=== PATIENT | male | born 1940 | race Caucasian/White ===

== ENCOUNTER 2020-10-24 20:27 | Emergency (ER) | payer OTHER ==
[~2020-10-24] VITALS: Ht 177.8 cm; Wt 75.8 kg
[~2020-10-24 20:27] MED LIST: AMARYL4 MG PO; ASPIRIN325 PO; CINNAMON PO; COQ-10100 MG PO; COUMADIN 5 MG TA5 M1 PO; COZAAR 50 MG TA50 M2 PO; FOLIC ACID1 MG PO; HYDROCODONE-AP1 EAC6 PO; LOPRESSOR PO; MULTIVITAMINS PO; NITROGLYCERIN0.4 MG; OMEGA-31000 M1 PO; ONGLYZA2.5 MG PO; PRAVASTATIN SOD40 MG PO; PRILOSEC 20 MG20 MG PO; SAW PALMETTO160 M1 PO; TOUJEO SOL300 UNIT/1 SQ; VALIUM5 MG PO; VITAMIN D1000 UNI1 PO; ZESTRIL30 MG PO
[2020-10-24 21:05] LABS: ABSOLUTE NEUTROPHILS 3.1 thou/uL (1.4-8.2); BASOPHILS 0.4 % (0.0-2.0); EOSINOPHILS 0.8 % (0.0-3.0); HEMATOCRIT 32.5 % (42.0-52.0); HEMOGLOBIN 10.9 gm/dL (14.0-18.0); LYMPHOCYTES 18.1 % (24.0-44.0); MCH 27.7 pg (26.0-34.0); MCHC 33.6 g/dL (28.0-37.0); MCV 82.6 fL (80.0-100.0); MONOCYTES 15.1 % (1.0-8.0); PLATELET COUNT 133 thou/uL (150-400); POLYS 65.6 % (36.0-66.0); RBC 3.94 mil/uL (4.50-6.00); RDW 13.9 % (10.5-14.5); WBC 4.7 thou/uL (4.0-11.0)
[2020-10-24 21:14] LABS: CALCIUM 8.8 mg/dL (8.5-10.1); CREATININE 1.5 mg/dL (0.7-1.3); POTASSIUM 4.3 mmol/L (3.5-5.1)
[2020-10-24 21:17] LABS: URINE BILIRUBIN NEGATIVE (Negative); URINE BLOOD TRACE (Negative); URINE CLARITY CLEAR; URINE COLOR YELLOW; URINE GLUCOSE-RANDOM* NEGATIVE (Negative); URINE KETONES NEGATIVE (Negative); URINE LEUKOCYTES-REFLEX NEGATIVE (Negative); URINE NITRITE-REFLEX NEGATIVE (Negative); URINE PROTEIN (DIPSTICK) 1+ (Negative); URINE SPECIFIC GRAVITY 1.025 (1.005-1.035)
[2020-10-24 21:20] LABS: ALBUMIN 3.1 g/dL (3.4-5.0); DIRECT BILIRUBIN 0.1 mg/dL (<0.1-0.2); TOTAL BILIRUBIN 0.4 mg/dL (0.2-1.0); TOTAL PROTEIN 7.2 g/dL (6.4-8.2)
[2020-10-24 21:24] LABS: BACTERIA-REFLEX 1-9 Few /HPF (None Seen); CASTS None Seen /LPF (None Seen); CRYSTALS None Seen /LPF (None Seen); SQUAMOUS None Seen /LPF (0-3); URINE RBC 0-2 Rare /HPF (0-2); URINE WBC-REFLEX None Seen /HPF (0-5)
[2020-10-24] MEDS ORDERED: KEFLEX500 M1 PO (22:58)
[2020-10-24] MEDS ORDERED: IBUPROFEN 400400 M2 PO (22:58)
[2020-10-24] MEDS ORDERED: TYLENOL325 M1 PO (22:58)
[2020-10-24 23:40] VITALS: BP 117/65
== END 2020-10-24 23:40 | disposition home or self-care (01) ==
LOC: ER 20:27
PROVIDERS: Nurse Practitioner
DX: U07.1 COVID-19 (principal); N28.9 Disorder of kidney and ureter, unspecified; N39.0 Urinary tract infection, site not specified; E11.9 Type 2 diabetes mellitus without complications; Z88.8 Allergy status to other drugs, medicaments and biological substances; Z79.4 Long term (current) use of insulin; Z79.899 Other long term (current) drug therapy; Z79.82 Long term (current) use of aspirin; Z95.5 Presence of coronary angioplasty implant and graft; Z98.890 Other specified postprocedural states

== ENCOUNTER → 2021-07-16 | Outpatient (CLI) | payer OTHER ==
[~2021-07-16] VITALS: Ht 177.8 cm; Wt 73.9 kg
[~2021-07-16] MED LIST changes: +CARVEDILOL12.5 MG PO; -COUMADIN 5 MG TA5 M1 PO; +COZAAR 25 MG TA25 MG PO; -COZAAR 50 MG TA50 M2 PO; +FARXIGA10 MG PO; +FISH OIL 1,001000 M2 PO; +IBUPROFEN 400400 M2 PO; +IRON240 M1 PO; +ISORDIL40 M1 PO; +KEFLEX500 M1 PO; +LEVEMIR100 UNIT/2 SUBQ; +LEVOTHYROXINE50 MC1 PO; +LOVENOX40 MG/0.4; +MAGNESIUM500 MG PO; +PROTONIX40 M2 PO; +REPATHA SU140 MG/1 M SUBQ; +TYLENOL325 M1 PO; +VITAMIN B-122000 MC1 PO; +VITAMIN D3125 MC2 PO; +WARFARIN SODIU7.5 MG PO
[2021-07-16 13:07] VITALS: BP 127/58
--- NOTE | 2021-07-16 13:27 | NUR ---
Pain Clinic Assessment: 1. History of Osteoarthritis: Not Applicable History of Rheumatoid Arthritis: Not Applicable 2. Height: 5 ft. 10 in. 177.8 cm. Weight: 163.0 lb. oz. 73.936 kg. Patient's BMI: 23.4 3. Vital Signs: BP: 127/58 Pulse: 71 Resp: 20 Temp: 02 Sat: 96 ECG Mon: 4. Pain Intensity: 0 5. Fall Risk: Dizziness: N Needs help standing or walking: N Fallen in the last 3 months: N Fall risk comments: 6. Patient on Blood Thinner: Warfarin (Coumadin) 7. History of Hypertension: Y 8. Opioid Therapy greater than 6 weeks: Opiate Contract Signed: 9. Risk Assessment Tool Provided: 3 LOW RISK 10. Functional Assessment Tool: 11. Recreational Drug Use: Never Drug Type: Tobacco Use: Former Smoker Tobacco Type: Cigarettes Amount or Packs/day: How Many Years: Alcohol Use: No Frequency: Quant:
--- NOTE | 2021-07-23 11:49 | HPC ---
[facility] [place] [address] PAIN MANAGEMENT CONSULTATION Name: HILDA JACK Room #: REG JARON HatchRitchie#: [id number] Admission: 07/16/21 Attend Phys: Jhon Cody DO Discharge: Date of : 42 Report #: [id number] THIS REPORT FOR: cc: Giles Humphrey MD, Steven A. MD Johnson, James E. DO ~ cc: David Panchal DPM DATE OF SERVICE: 07/16/2021 REFERRING PHYSICIAN: David Panchal DPM CHIEF COMPLAINT: Bilateral leg cramping. HISTORY OF PRESENT ILLNESS: As you know, the patient is a pleasant 81-year-old male who has been referred to our service by his silver chaser to discuss treatment for a 10-year history of bilateral lower extremity cramping. The patient states he cramps only at night and while in bed. He states his pain improves within 3 minutes of drinking apple cider vinegar or applying apple cider vinegar directly to his legs. It resolves entirely and there is no recurrence of symptoms. He has recently been given magnesium tablets, for which he takes 2 tablets p.o. at bedtime, which has resolved his cramping entirely since he began that 3 days ago. The patient apparently discussed his case with his PCP who placed him on the magnesium and resolved bilateral cramping entirely. He has been referred to our service prior to the resolution of his symptoms. He states today that his pain has completely resolved. He has been referred to our service prior to the discontinuation of his cramping to discuss the possibility of suggestions of neuropathic medication to assist. The patient reports today, his pain has resolved, but prior, his pain was periodic and intermittent in nature, only at night when he lays down. He states his pain was cramping, aching, throbbing and tender in sensation. He places his current pain score 0/10, daily averages at 0/10, worst pain has been is 10/10. The patient states his pain is only present in the evening while lying down in bed. The application of apple cider vinegar prior to his magnesium was working well. Now that he has been on magnesium, his pain has resolved. He has been referred to our service to discuss options for treatment. PAST MEDICAL HISTORY: 1. Diabetes mellitus type 2. 2. Hypertension. 3. Coronary artery disease. 4. Peptic ulcer disease. 5. Osteoarthritis. PAST SURGICAL HISTORY: 1. Percutaneous heart stenting in [address]. [address] [address] PAIN MANAGEMENT CONSULTATION Name: HILDA JACK Room #: REG [facility].#: [id number] Admission: 07/16/21 Attend Phys: Jhon Cody DO Discharge: Date of : 42 Report #: [id number] 2. Open heart surgery in 1979 and again in 2000. SOCIAL HISTORY: The patient denies tobacco, alcohol or IV or illicit drug use. He is retired years ago. He is not in litigation in regards to pain. He is unaccompanied at today's visit. REVIEW OF SYSTEMS: Positive for fatigue and weakness, wearing corrective eyewear, hearing loss with tinnitus, chronic sinus problems with rhinitis, shortness of breath, heart trouble, chest pain and palpitations, frequent and recurrent coughs, nocturia, incontinence and dribbling to urine, rash and itching, lightheadedness and dizziness, numbness and tingling sensations, thyroid disease, heat and cold intolerance, diabetes mellitus. All other review of systems negative per 12-point review of systems other than those listed in history of present illness. Pain impact score 30/70, mild to moderate interference of daily activities secondary to pain. ALLERGIES: STATINS. CURRENT MEDICATIONS: Iron 240 mg once a day, Lovenox injectable 40 mg per day, Repatha 140 mg subcutaneous prior to meals, Levemir 40 units subQ per day, omega-3 fish oil 1 tab per day, cyanocobalamin 2000 mcg per day, carvedilol 12.5 mg b.i.d., isosorbide dinitrate 40 mg once a day, pantoprazole 40 mg per day, cholecalciferol 125 mcg per day, levothyroxine 50 mcg per day, Farxiga 10 mg once a day, losartan 25 mg once a day, nitroglycerin 0.4 mg p.r.n., warfarin 7.5 mg once a day. IMAGING: No imaging available. 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 This was dated nearly 10 years ago. PQRS: The patient has known arthritic changes of the cervical spine, lumbar spine, bilateral hips and knees. No rheumatoid arthritis. He is placing pain intensity today at 0/10. He is not a fall risk, has not had a fall in last 3 months. He is on multiple blood thinners and has continued those medications. He is treated for hypertension. He is on no opioid medications, has a low opioid addiction potential based on assessment tool. Pain impact is 30/70, mild to moderate interference of daily activities secondary to pain. PHYSICAL EXAMINATION: VITAL SIGNS: Blood pressure 127/58, pulse is 71, respiratory rate 20, unlabored. The patient is 96% on room air. Height 5 feet 10 inches tall, weight 163 pounds, BMI calculated 23.4. GENERAL: Well-developed, well-nourished, well-hydrated 81-year-old male, [facility] [address] [place] [address] PAIN MANAGEMENT CONSULTATION Name: HILDA JACK Room #: REG JARON Hatch.#: [id number] Admission: 07/16/21 Attend Phys: Jhon Cody DO Discharge: Date of : 42 Report #: [id number] appearing stated age. He is placing current pain score 0/10. HEENT: Normocephalic, atraumatic. Pupils equal, round and responsive to light. LUNGS: Clear. No wheezing, rhonchi or rales. CARDIOVASCULAR: Regular. No appreciable gallop, no rub. ABDOMEN: Soft, nontender. EXTREMITIES: Show no clubbing, no cyanosis, no edema. MUSCULOSKELETAL: Lower extremity strength appears symmetrical, 5/5, intact to light touch from L1 through S2 dermatomes. Seated straight leg raising negative. Supine straight leg raising negative. Fabere's test is negative. Modified Gaenslen's positive for axial low back pain. Ankle clonus negative. Babinski is negative. Muscle bulk and tone is symmetrical in comparing lower extremities. ASSESSMENT: 1. Bilateral lower extremity cramping secondary to electrolyte abnormality. 2. Chronic bilateral leg paresthesias. 3. Chronic pain. PLAN: 1. The patient has been referred to our service by his silver chaser for evaluation for bilateral lower extremity cramping. The patient has a 10-year-old EMG that was provided to us, which shows some sensory polyneuropathy, consistent with his age. This information provides minimal information in regards to where the patient is 10 years post-evaluation. The fact the patient has seen an improvement in symptoms with magnesium for which he takes 2 mg 2 tabs at night for a total of 4 mg with resolution of symptoms, it would indicate the patient is experiencing electrolyte abnormality. The patient was easily able to control symptoms with apple cider vinegar that he applied either topically or would take orally and he would have resolution of his cramping within 3 minutes of time and the cramping would not restart. I would not recommend starting the patient on any other medications at this time. The fact that he has had resolution of symptoms with the magnesium tablets is indicative of an electrolyte abnormality, which has been resolved with [id number] medication. He can continue to use his apple cider vinegar if he finds it beneficial. I would recommend a conservative treatment in this patient's case, so I would not recommend initiating any neuropathic medications at this time. The patient is agreeable. 2. If the patient requires, one can certainly consider starting the patient on amitriptyline, nortriptyline, Cymbalta, Lyrica or gabapentin as a treatment approach, but given the fact that he has had no symptoms since he started the magnesium and his prior symptoms were resolved easily with apple cider vinegar, we would not recommend starting any of these medications. 3. No further changes in medication management were offered at this time. We recommend the patient continue his current treatment. We are pleased to see he is doing well with the adjustments made by his primary care physician, Dr. Humphrey. [address] [address] PAIN MANAGEMENT CONSULTATION Name: HILDA JACK Room #: REG JARON Ngo#: [id number] Admission: 07/16/21 Attend Phys: Jhon Cody DO Discharge: Date of : 42 Report #: [id number] We wish to thank Dr. Panchal for the referral of the patient to our clinic. I am pleased to see the patient is doing well and does not require our services further. We will be returning his care to his silver chaser and his primary care physician. <ELECTRONICALLY SIGNED> By: Jhon Cody DO 07/23/21 [id number] [id number] Jhon Cody DO /nt
== END ==
LOC: PAIN 10:33
PROVIDERS: ATTEND Anesthesiology Pain Medicine
DX: G89.29 Other chronic pain (principal); R25.2 Cramp and spasm; E11.9 Type 2 diabetes mellitus without complications; I10 Essential (primary) hypertension; I25.10 Atherosclerotic heart disease of native coronary artery without angina pectoris; Z79.899 Other long term (current) drug therapy; Z88.8 Allergy status to other drugs, medicaments and biological substances